=== PATIENT | male | born 1990 | race African-American/Black ===

== ENCOUNTER 2017-12-22 12:08 | Emergency (ER) | payer OTHER, SELFPAY | END 2017-12-22 12:59 | disposition home or self-care (01) | LOC: ERS 12:08 | DX: L42 Pityriasis rosea (principal) | CPT/HCPCS: 99282 ==

== ENCOUNTER 2018-02-28 11:25 | Emergency (ER) | payer SELFPAY | END 2018-02-28 12:06 | disposition home or self-care (01) | LOC: ERS 11:25 | DX: M67.441 Ganglion, right hand (principal) | CPT/HCPCS: 99283 ==

== ENCOUNTER 2018-06-15 17:50 | Emergency (ER) | payer SELFPAY | END 2018-06-15 18:43 | disposition left against medical advice (07) | LOC: ERS 17:50 | DX: Z53.21 Procedure and treatment not carried out due to patient leaving prior to being seen by health care provider (principal) ==

== ENCOUNTER 2018-10-05 23:50 | Emergency (ER) | payer SELFPAY ==
--- NOTE | 2018-10-06 08:23 | RAD ---
FOUR VIEWS RIGHT KNEE: History: Right knee swelling after falling off a flat bed truck. FINDINGS: Four views of the right knee shows no evidence of acute fracture or dislocation. No knee effusion is seen. No degenerative changes are seen. IMPRESSION: Unremarkable exam. POS: [facility]
== END 2018-10-06 00:45 | disposition home or self-care (01) ==
LOC: ERS 23:50
DX: S83.8X1A Sprain of other specified parts of right knee, initial encounter (principal); X50.9XXA Other and unspecified overexertion or strenuous movements or postures, initial encounter

== ENCOUNTER 2019-08-04 10:17 | Outpatient (CLI) | payer OTHER ==
--- NOTE | 2019-08-04 11:59 | MRI ---
MR OF THE RIGHT KNEE WITHOUT CONTRAST INDICATION: Right knee pain TECHNIQUE: Axial and coronal PD fat sat, sagittal T2 fat sat, sagittal PD turbo spin echo and T1 shaun nal images were obtained of the right knee. COMPARISON: None. FINDINGS: Joint effusion: Moderate joint effusion Semimembranosus-medial gastrocnemius popliteal cyst: Moderate sized Ni's cyst Ligaments: The ACL, PCL, MCL and LCLC are intact. Extensor mechanism: Intact. Menisci: Intact. Articular cartilage: There is a full-thickness articular cartilage defect involving the medial patell ar facet on image 1 of series 3 and image 13 of series 5 measuring 1.2 x 1.2 cm with underlying subchondral edema. There is moderate chondrosis involving the medial femoral trochlea. Articular cart ilage of the femoral tibial compartments appears relatively well-maintained. Osseous structures: Normal marrow signal. Popliteus and IT band: Normal. IMPRESSION: 1. 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 2. Moderate joint effusion moderate size Ni cyst
== END 2019-08-04 10:18 | disposition home or self-care (01) ==
LOC: TBSIIMAG 10:17
PROVIDERS: ATTEND Family Medicine
DX: S86.911D Strain of unspecified muscle(s) and tendon(s) at lower leg level, right leg, subsequent encounter (principal); S89.91XD Unspecified injury of right lower leg, subsequent encounter; M71.21 Synovial cyst of popliteal space [Baker], right knee; M25.461 Effusion, right knee; M23.91 Unspecified internal derangement of right knee; R60.0 Localized edema